=== PATIENT | female | born 1945 | race Caucasian/White ===

== ENCOUNTER 2017-04-15 06:32 | Emergency (ER) | payer MEDICARE ==
[~2017-04-15] VITALS: Ht 167.6 cm; Wt 77.1 kg
--- NOTE | 2017-04-15 06:35 | PHYS DOC ---
Adult General HPI HPI Patient is a 71 year old female presenting to the emergency department for evaluation of left neck pain shooting down to her left arm that has been present for 2 days. Patient says it is constant but gets worse with certain movements of her head and arm. She will not commit to a description of the pain as she says it is not sharp burning tightness squeezing pressure. She just says that it is an intense pain. She denies any exertional pain diaphoresis nausea vomiting shortness of breath. She says that she was looking up on [employer] and there was concern about heart disease and she says that her mother had heart disease and that is why she called the ambulance. She has a history of high cholesterol but no diabetes hypertension or smoking. Review of Systems Review of Systems Constitutional: Denies fever or chills [] Eyes: Denies change in visual acuity, redness, or eye pain [] HENT: Denies nasal congestion or sore throat [] Respiratory: Denies cough or shortness of breath [] Cardiovascular: No CP GI: Denies abdominal pain, nausea, vomiting, bloody stools or diarrhea [] : Denies dysuria or hematuria [] Musculoskeletal: Denies back pain or joint pain [] Integument: Denies rash or skin lesions [] Neurologic: Denies headache, focal weakness or sensory changes [] Current Medications Current Medications Current Medications Medications (Trade) Dose Ordered Sig/Elder Start Time Stop Time Status Last Admin Dose Admin Aspirin (Ecotrin) 325 mg 1X ONCE 04/15/17 07:00 04/15/17 07:01 DC 04/15/17 07:20 325 MG Diazepam (Valium) 5 mg 1X ONCE 04/15/17 07:00 04/15/17 07:01 DC 04/15/17 07:20 5 MG Fentanyl Citrate (Fentanyl 2ml Vial) 75 mcg 1X ONCE 04/15/17 07:00 04/15/17 07:01 DC 04/15/17 07:31 75 MCG Ketorolac Tromethamine (Toradol) 15 mg 1X ONCE 04/15/17 07:00 04/15/17 07:01 DC 04/15/17 07:23 15 MG Allergies Allergies Allergies Coded Allergies Type Severity Reaction Last Updated Verified Penicillins Allergy Intermediate RASH 04/15/17 Yes Sulfa (Sulfonamide Antibiotics) Allergy Intermediate RASH 04/15/17 Yes Physical Exam Physical Exam Constitutional: Well developed, well nourished, no acute distress, non-toxic appearance. [] HENT: Normocephalic, atraumatic, bilateral external ears normal, oropharynx moist, no oral exudates, nose normal. [] Eyes: PERRLA, EOMI, conjunctiva normal, no discharge. [] Neck: No midline tenderness but positive Spurling's test when turning head to the left Cardiovascular:Heart rate regular rhythm, no murmur [] Lungs & Thorax: Bilateral breath sounds clear to auscultation [] Abdomen: Bowel sounds normal, soft, no tenderness, no masses, no pulsatile masses. [] Skin: Warm, dry, no erythema, no rash. [] Back: No tenderness, no CVA tenderness. [] Extremities: No tenderness, no cyanosis, no clubbing, ROM intact, no edema. [] Neurologic: Alert and oriented X 3, normal motor function, normal sensory function, no focal deficits noted. [] Current Patient Data Vital Signs Vital Signs Date Time Temp Pulse Resp B/P (MAP) Pulse Ox O2 Delivery O2 Flow Rate FiO2 04/15/17 06:38 98.7 65 16 215/89 (131) 95 Room Air 98.7 Lab Values Laboratory Tests Test 04/15/17 07:15 White Blood Count 6.2 x10^3/uL (4.0-11.0) Red Blood Count 4.52 x10^6/uL (3.50-5.40) Hemoglobin 14.1 g/dL (12.0-15.5) Hematocrit 42.4 % (36.0-47.0) Mean Corpuscular Volume 94 fL (79-100) Mean Corpuscular Hemoglobin 31 pg (25-35) Mean Corpuscular Hemoglobin Concent 33 g/dL (31-37) Red Cell Distribution Width 13.2 % (11.5-14.5) Platelet Count 205 x10^3/uL (140-400) Neutrophils (%) (Auto) 65 % (31-73) Lymphocytes (%) (Auto) 18 % (24-48) L Monocytes (%) (Auto) 10 % (0-9) H Eosinophils (%) (Auto) 6 % (0-3) H Basophils (%) (Auto) 1 % (0-3) Neutrophils # (Auto) 4.0 x10^3uL (1.8-7.7) Lymphocytes # (Auto) 1.1 x10^3/uL (1.0-4.8) Monocytes # (Auto) 0.6 x10^3/uL (0.0-1.1) Eosinophils # (Auto) 0.4 x10^3/uL (0.0-0.7) Basophils # (Auto) 0.1 x10^3/uL (0.0-0.2) Sodium Level 141 mmol/L (136-145) Potassium Level 3.9 mmol/L (3.5-5.1) Chloride Level 107 mmol/L (98-107) Carbon Dioxide Level 27 mmol/L (21-32) Anion Gap 7 (6-14) Blood Urea Nitrogen 15 mg/dL (7-20) Creatinine 0.5 mg/dL (0.6-1.0) L Estimated GFR (Cockcroft-Gault) 121.6 BUN/Creatinine Ratio 30 (6-20) H Glucose Level 108 mg/dL (70-99) H Calcium Level 9.2 mg/dL (8.5-10.1) Magnesium Level 2.2 mg/dL (1.8-2.4) Total Bilirubin 0.6 mg/dL (0.2-1.0) Aspartate Amino Transferase (AST) 20 U/L (15-37) Alanine Aminotransferase (ALT) 26 U/L (14-59) Alkaline Phosphatase 116 U/L (46-116) Troponin I Quantitative < 0.017 ng/mL (0.000-0.055) BL-Gqt-T-Type Natriuretic Peptide 172 pg/mL (0-124) H Total Protein 6.9 g/dL (6.4-8.2) Albumin 3.4 g/dL (3.4-5.0) Albumin/Globulin Ratio 1.0 (1.0-1.7) Laboratory Tests 04/15/17 07:15 Laboratory Tests 04/15/17 07:15 EKG EKG Normal sinus rhythm at 55 bpm with leftward axis no obvious ST elevation or depression and normal T waves. Radiology/Procedures Radiology/Procedures Indication: Pain in neck shooting down left arm. Technique: Axial images and coronal and sagittal reformatted images are provided. No comparison is available. One or more of the following individualized dose reduction techniques were utilized for this examination: 1. Automated exposure control 2. Adjustment of the mA and/or kV according to patient size 3. Use of iterative reconstruction technique Findings: There is no fracture or traumatic malalignment. There is straightening of cervical lordosis. There is slight anterolisthesis at C3-C4 and C4-C5 which is probably degenerative. Disc osteophyte complexes, uncinate process spurring, and narrowing of the interspace are most notable at C5-C6 and C6-C7. There may be mild canal stenosis at these levels and mild to moderate foraminal narrowing. There is a 12 mm left thyroid nodule. Lung apices are clear. Impression: 1. Degenerative changes are greatest at C5-C6 and C6-C7. 2. Negative for fracture or dislocation. 3. Left thyroid nodule. DICTATED and SIGNED BY: DANNI GREGORY MD DATE: 04/15/17 0739 Indication: Chest pain radiating to neck and right arm. Epigastric pain. Asthma. Technique: Upright portable chest radiograph was obtained. No comparison is available. Findings: The lungs are clear. The cardiopulmonary silhouette is within normal limits. The bony structures are intact. Leads overlie the patient. Impression: No active pulmonary disease. DICTATED and SIGNED BY: DANNI GREGORY MD DATE: 04/15/17 0746 Course & Med Decision Making Course & Med Decision Making Patient's symptoms are more consistent with radiculopathy than cardiac in my opinion however we will get some tests treat her symptoms and then reassess. Patient's pain completely resolved with Toradol and Valium and fentanyl. He has repeat normal neurologic exam and she appears quite well. I offered admission for her concerns of cardiac ischemia and she refused. I think that this is very reasonable given her pain has been going on for 2 days and that she has a normal EKG and troponin more than 6 hours out from the onset of symptoms. She had a normal stress test 4 years ago and would likely need this repeated so I told her to continue taking her aspirin daily not exert herself and follow with her primary care provider and/or clean room assembler within 72 hours. Her heart score is equal to 3 based off of her age and risk factors. Patient will be discharged with follow-up and supportive treatment for cervical radiculopathy. Patient aware and agreeable with the above plan and verbalized understanding. Cade Disclaimer Cade Disclaimer This electronic medical record was generated, in whole or in part, using a voice recognition dictation system. Departure Departure Impression: Primary Impression: Cervical radiculopathy Additional Impression: Neck pain Disposition: 01 HOME, SELF-CARE Condition: GOOD Referrals: YANY PENDLETON MD (PCP) MADHU FAJARDO MD Patient Instructions: Cervical Radiculopathy Additional Instructions: Take 400 mg of ibuprofen every 8 hours for pain and the Percocet is for breakthrough pain. Valium will help with spasm. Take your aspirin daily and do not exert herself until seen by her primary care provider. Come back to the emergency department sooner with any new or worsening pain weakness or shortness of breath or other general concerns. Scripts Diazepam (VALIUM) 5 Mg Tablet 5 MG PO TID Y for MUSCLE SPASMS, #10 TAB Prov: ANALI GARCIA DO 04/15/17 Oxycodone/Apap 5-325 (PERCOCET 5-325 MG TABLET) 1 Each Tablet 1 TAB PO PRN Q6HRS Y for PAIN, #20 TAB 0 Refills Prov: ANALI GARCIA DO 04/15/17 Problem Qualifiers ANALI GARCIA DO April 15, 2017 06:35
[2017-04-15] MEDS ORDERED: fentaNYL PF VIAL 100 MCG/2 ML VIAL IV ONE (07:00)
[2017-04-15] MEDS ORDERED: ASPIRIN ENTERIC COATED 325 MG TABLET.DR. PO ONE (07:00)
[2017-04-15] MEDS ORDERED: KETOROLAC TROMETHAMINE 30 MG/ML INJ. IV ONE (07:00)
[2017-04-15] MEDS ORDERED: diazePAM 5 MG TABLET PO ONE (07:00)
[2017-04-15 07:43] LABS: CALCIUM 9.2 mg/dL (8.5-10.1); CREATININE 0.5 mg/dL (0.6-1.0); GFR 121.6; POTASSIUM 3.9 mmol/L (3.5-5.1)
[2017-04-15 07:49] LABS: ALBUMIN 3.4 g/dL (3.4-5.0); MAGNESIUM 2.2 mg/dL (1.8-2.4); TOTAL BILIRUBIN 0.6 mg/dL (0.2-1.0); TOTAL PROTEIN 6.9 g/dL (6.4-8.2)
--- NOTE | 2017-04-15 07:49 | RAD ---
Indication: Pain in neck shooting down left arm. Technique: Axial images and coronal and sagittal reformatted images are provided. No comparison is available. One or more of the following individualized dose reduction techniques were utilized for this examination: 1. Automated exposure control 2. Adjustment of the mA and/or kV according to patient size 3. Use of iterative reconstruction technique Findings: There is no fracture or traumatic malalignment. There is straightening of cervical lordosis. There is slight anterolisthesis at C3-C4 and C4-C5 which is probably degenerative. Disc osteophyte complexes, uncinate process spurring, and narrowing of the interspace are most notable at C5-C6 and C6-C7. There may be mild canal stenosis at these levels and mild to moderate foraminal narrowing. There is a 12 mm left thyroid nodule. Lung apices are clear. Impression: 1. Degenerative changes are greatest at C5-C6 and C6-C7. 2. Negative for fracture or dislocation. 3. Left thyroid nodule.
--- NOTE | 2017-04-15 07:49 | RAD ---
Indication: Chest pain radiating to neck and right arm. Epigastric pain. Asthma. Technique: Upright portable chest radiograph was obtained. No comparison is available. Findings: The lungs are clear. The cardiopulmonary silhouette is within normal limits. The bony structures are intact. Leads overlie the patient. Impression: No active pulmonary disease.
[2017-04-15 07:54] LABS: BASO # 0.1 x10^3/uL (0.0-0.2); BASO % 1 % (0-3); EOS % 6 % (0-3); HEMATOCRIT 42.4 % (36.0-47.0); HEMOGLOBIN 14.1 g/dL (12.0-15.5); LYMPH # 1.1 x10^3/uL (1.0-4.8); LYMPH % 18 % (24-48); MEAN CORPUSCULAR HEMOGLOBIN 31 pg (25-35); MEAN CORPUSCULAR HGB CONC 33 g/dL (31-37); MEAN CORPUSCULAR VOLUME 94 fL (79-100); MONO % 10 % (0-9); NEUT % 65 % (31-73); PLATELET COUNT 205 x10^3/uL (140-400); RED BLOOD COUNT 4.52 x10^6/uL (3.50-5.40); RED CELL DISTRIBUTION WIDTH 13.2 % (11.5-14.5); WHITE BLOOD COUNT 6.2 x10^3/uL (4.0-11.0)
[2017-04-15] MEDS ORDERED: DEXAMETHASONE SOD PHOS 20 MG/5 ML VIAL. IV ONE (08:15)
[2017-04-15] MEDS ORDERED: DIAZ5TAB PO (08:19)
[2017-04-15] MEDS ORDERED: OXYC-323 PO (08:19)
[2017-04-15 09:00] VITALS: BP 170/72
--- NOTE | 2017-04-15 14:47 | EKG ---
[facility] [address] [place] [address] Test Date: 2017-04-15 Test Time: 07:14:53 Pat Name: SHADY MONSALVE Department: Room: Gender: F Assembler Seat: : 1945 Requested By: ANALI GARCIA Order Number: [id number] Reading MD: Ivon Song Measurements Intervals [place] Rate: 55 P: 31 VA: 202 QRS: -2 QRSD: 96 T: 13 QT: 440 QTc: 423 Interpretive Statements SINUS RHYTHM LEFTWARD AXIS NON SPECIFIC T ABNORMALITY RI6.01 Unconfirmed report No previous ECG available for comparison Electronically Signed On 04-16-2017 21:29:43 CDT by Ivon Song
== END 2017-04-15 09:05 | disposition home or self-care (01) ==
LOC: ER 06:32
DX: M54.12 Radiculopathy, cervical region (principal); M54.2 Cervicalgia; Z88.0 Allergy status to penicillin; Z88.2 Allergy status to sulfonamides
CPT/HCPCS: 36415; 71010; 72125; 80053; 83735; 83880; 84484; 85027; 93005; 96374; 96375; 99285; J1100; J1885; J3010

== ENCOUNTER → 2019-01-21 | Outpatient (CLI) | payer MEDICARE ==
[~2019-01-21] MED LIST: DIAZ5TAB PO; OXYC1TAB15 PO
--- NOTE | 2019-01-21 12:04 | KCIC ---
PQRS Compliance Statement: One or more of the following individualized dose reduction techniques were utilized for this examination: 1. Automated exposure control 2. Adjustment of the mA and/or kV according to patient size 3. Use of iterative reconstruction technique Coronary calcium score CT chest without contrast History: 73-year-old female with hyperlipidemia and maternal family history of heart disease. Technique: With retrospective electrocardiogram gating axial reconstructed noncontrast images of the chest at the level of the coronary arteries was performed. Images were post processed on workstation and calcium score calculated using the modified Agatston Janowitz protocol. Findings: Total coronary calcium score is 329.8. This is a large plaque burden and high cardiovascular disease risk. This is based on the calcium score of 0 of the left main coronary artery, 127.3 of the left anterior descending artery, score of 0.8 of the left circumflex artery and score of 201.7 of the right coronary artery. Noncoronary findings demonstrate aortic annular calcification and calcific aortic valve stenosis. Cardiac size normal, no pericardial effusion. Upper abdomen unremarkable. Great vessels are normal caliber. Mild atelectasis or scarring in the posterior lower lobes bilaterally. No pleural abnormality. Bones unremarkable. IMPRESSION: Patient's total calcium score is 329.8. Electronically signed by: Aj Mauro MD (01/21/2019 12:00 PM) [id number]
--- NOTE | 2019-01-21 13:31 | KCIC ---
Bilateral digital screening mammograms with 3-D tomosynthesis: Reason for examination: Routine screening. Comparison is made to previous studies dated 05/10/2015 and 07/05/2012. Bilateral mammograms in CC and oblique projections were obtained with 2-D imaging and 3-D tomosynthesis imaging on a Siemens Inspiration unit and reviewed on the workstation. Interpretation was made with the benefit of CAD. The skin and nipples show no abnormalities. No abnormal axillary lymph nodes are seen. The breast parenchyma shows scattered fatty and fibroglandular density. (Breast density: Category B.) There continues to be a small nodule at the 4:00 B position of the left breast which has shown a decrease in size since previous exam. There also continues to be some asymmetric tissue at the 7:00 B position of the left breast which is slightly less prominent. There is however a new 5.6 mm nodular density in the retroareolar position approximately 3.5 cm deep to the nipple in the left breast. This could represent a new cyst but recommend further evaluation with ultrasound. There are no other new dominant masses, suspicious calcifications or architectural distortion. Impression: Small 5.6 mm nodular parenchymal density 3.5 cm deep to the nipple in the left breast. Recommend further evaluation with coned compression views and ultrasound of the left breast. BI-RAD Category 0: Incomplete. Needs additional imaging evaluation. "Our facility is accredited by the [employer] Mammography Program." This patient's information has been entered into a reminder system for the patient to be notified with the results of her examination and a target date for the next mammogram. Electronically signed by: Teagan Bernal MD (01/21/2019 1:28 PM) [id number]
== END | disposition home or self-care (01) ==
LOC: KCIC CT 10:56
PROVIDERS: ATTEND Family Medicine
DX: Z12.31 Encounter for screening mammogram for malignant neoplasm of breast (principal); Z13.6 Encounter for screening for cardiovascular disorders; E78.5 Hyperlipidemia, unspecified; Z82.49 Family history of ischemic heart disease and other diseases of the circulatory system
CPT/HCPCS: 75571; 77063; 77067

== ENCOUNTER → 2019-01-30 | Outpatient (CLI) | payer MEDICARE ==
--- NOTE | 2019-01-30 14:11 | KCIC ---
EXAM: Left breast diagnostic mammogram; left breast sonogram. HISTORY: 73-year-old female presents for evaluation of nodularity within the left breast demonstrated on a screening mammogram dated 01/21/2019. TECHNIQUE: Slight compression views of the left breast are obtained. Sonographic imaging of the left breast targeted to the retroareolar location was also performed. COMPARISON: 01/21/2019, 05/10/2015 and 07/05/2012 BREAST PARENCHYMAL DENSITY: Level B - Scattered fibroglandular densities. FINDINGS: There is a small persistent nodular density within the slightly lateral aspect of the left breast at mid depth. There are additional areas of nodularity which are stable compared to multiple prior studies. There is no architectural distortion or suspicious calcification within the left breast. Sonographic imaging of the left breast demonstrates a 5 mm oval to round circumscribed hypoechoic lesion with internal echoes at the 2:30 position 3.5 cm. This corresponds with the size and likely the location of the mammographic finding of concern. The imaging appearance favors a complicated cyst. There is no internal blood flow to suggest a solid lesion component. IMPRESSION: 1. Suspected 5 mm complicated cyst within the 2:30 position of the left breast at mid depth, likely corresponding with mammographic nodularity of concern. There are additional areas of nodularity within the left breast which are stable compared to multiple studies. 2. BI-RADS Category 3: Probably benign finding(s). Short term follow up with a left breast diagnostic mammogram and sonogram is recommended in 6 months to confirm stability and confirm that the sonographic finding corresponds with the mammographic finding. If your mammogram demonstrates that you have dense breast tissue, which could hide abnormalities, and if you have other risk factors for breast cancer that have been identified, you might benefit from supplemental screening tests that may be suggested by your ordering physician. Dense breast tissue, in and of itself, is a relatively common condition. This information is not provided to cause undue concern, but rather to raise your awareness and to promote discussion with your physician regarding the presence of other risk factors, in addition to dense breast tissue. A report of your mammography results will be sent to you and your physician. You should contact your physician if you have any questions or concerns regarding this report. Mammography is a sensitive method for finding small breast cancers, but it does not detect them all and is not a substitute for careful clinical examination. A negative mammogram does not negate a clinically suspicious finding and should not result in delay in biopsying a clinically suspicious abnormality. PQRS compliance statement - Patient information was entered into a reminder system with a target due date for the next mammogram. "Our facility is accredited by the [employer] Mammography Program." Electronically signed by: Lore Rodriguez MD (01/30/2019 2:08 PM) [id number]
== END | disposition home or self-care (01) ==
LOC: KCIC MAMMO 12:42
PROVIDERS: ATTEND Family Medicine
DX: R92.8 Other abnormal and inconclusive findings on diagnostic imaging of breast (principal)
CPT/HCPCS: 76641; 77065

== ENCOUNTER → 2019-08-04 | Outpatient (CLI) | payer MEDICARE ==
--- NOTE | 2019-08-04 13:55 | KCIC ---
EXAM: Left breast diagnostic mammogram with tomosynthesis; left breast sonogram. HISTORY: 73-year-old female presents for follow-up evaluation of suspected benign findings within the left breast demonstrated on a mammogram and sonogram dated 01/30/2019. TECHNIQUE: Full-field digital craniocaudal and mediolateral oblique 2D and 3D tomosynthesis images of the left breast are obtained for evaluation. Computer aided detection with [employer] software version 9.3 was applied. Sonographic imaging of the left breast including all 4 quadrants and the retroareolar region was performed. COMPARISON: 01/30/2019 and 01/21/2019 and 05/10/2015. BREAST PARENCHYMAL DENSITY: Level B - Scattered fibroglandular densities. FINDINGS: There is stable areas of nodularity and asymmetry within the left breast, allowing for differences in patient positioning and compression technique. There is no new suspicious mammographic finding. Sonographic imaging of the left breast demonstrates a stable suspected comminuted cyst at the 2:30 position 3.5 cm from the nipple measuring 4.5 mm. No new suspicious sonographic lesion is seen. IMPRESSION: 1. No significant interval change in the left breast. 2. BI-RADS Category 3: Probably benign finding(s). Repeat short-term follow up with a diagnostic mammogram in 6 months is recommended to confirm a year of stability and correspond with the previously established bilateral mammography interval. If your mammogram demonstrates that you have dense breast tissue, which could hide abnormalities, and if you have other risk factors for breast cancer that have been identified, you might benefit from supplemental screening tests that may be suggested by your ordering physician. Dense breast tissue, in and of itself, is a relatively common condition. This information is not provided to cause undue concern, but rather to raise your awareness and to promote discussion with your physician regarding the presence of other risk factors, in addition to dense breast tissue. A report of your mammography results will be sent to you and your physician. You should contact your physician if you have any questions or concerns regarding this report. Mammography is a sensitive method for finding small breast cancers, but it does not detect them all and is not a substitute for careful clinical examination. A negative mammogram does not negate a clinically suspicious finding and should not result in delay in biopsying a clinically suspicious abnormality. PQRS compliance statement - Patient information was entered into a reminder system with a target due date for the next mammogram. "Our facility is accredited by the [employer] Mammography Program." Electronically signed by: Lore Rodriguez MD (08/04/2019 1:52 PM) [id number]
== END | disposition home or self-care (01) ==
LOC: KCIC MAMMO 12:59
PROVIDERS: ATTEND Family Medicine
DX: R92.8 Other abnormal and inconclusive findings on diagnostic imaging of breast (principal)
CPT/HCPCS: 76641; 77065; G0279; 77061

== ENCOUNTER → 2020-01-28 | Outpatient (CLI) | payer MEDICARE ==
--- NOTE | 2020-01-28 15:42 | KCIC ---
Bilateral diagnostic digital mammograms with 3-D tomosynthesis: Reason for examination: Follow-up nodular density. Comparison is made to previous studies dated 01/21/2019 and 05/10/2015. Bilateral mammograms in CC and oblique projections were obtained with 2-D imaging and 3-D tomosynthesis imaging on a Siemens Inspiration unit and reviewed on the workstation. Interpretation was made with the benefit of CAD. The skin and nipples show no abnormalities. No abnormal axillary lymph nodes are seen. The breast parenchyma shows scattered fatty and fibroglandular density. (Breast density: Category B.) There appears to be a small 5 mm nodule in the 3:30 position of the left breast 6 cm from the nipple. There also appears to be a small nodular density in the central left breast on cc view approximately 3 cm deep to the nipple measuring 7.5 mm in size which is probably in the retroareolar position. Further evaluation with ultrasound is recommended. There are no other new dominant masses, suspicious calcifications or architectural distortion. Impression: Small nodular densities in the left breast at the 3:30 position 6 cm from the nipple and in the retroareolar position approximately 3 cm deep to the nipple. Recommend reevaluation with ultrasound. The patient will schedule that exam. BI-RADS Category 0: Incomplete: Need additional imaging evaluation. "Our facility is accredited by the [employer] Mammography Program." This patient's information has been entered into a reminder system for the patient to be notified with the results of her examination and a target date for the next mammogram. Electronically signed by: Teagan Bernal MD (01/28/2020 3:39 PM) [id number]
== END ==
LOC: KCIC MAMMO 12:46
PROVIDERS: ATTEND Family Medicine
DX: N63.24 Unspecified lump in the left breast, lower inner quadrant (principal)
CPT/HCPCS: 77066; G0279; 77062

== ENCOUNTER → 2021-01-20 | Outpatient (CLI) | payer MEDICARE ==
--- NOTE | 2021-01-20 17:23 | RAD ---
Examination: 1. Digital bilateral diagnostic mammogram. 2. Limited left breast ultrasound. INDICATION: 75-year-old woman due for mammographic screening presents for additional imaging evaluati on of nodular densities in the left breast recalled from screening the previous year but which she di d not schedule or keep recommended follow-up. COMPARISON: Bilateral mammogram of 01/28/2020, left digital diagnostic mammogram of 08/04/2019 and left b reast ultrasound examinations of 08/04/2019 and 01/30/2019. TECHNIQUE: Bilateral CC and MLO views were obtained with 2-D and 3-D technique and reviewed with comp uter-aided detection. In addition, targeted ultrasound of the left breast in the areas of recommended additional imaging was performed. FINDINGS: Scattered fibroglandular densities. Waxing and waning pattern of nodularity compatible with benign cystic change. Targeted ultrasound left breast identifies at the 2:30 o'clock position 3.5 cm from nipple reveals an unchanged 4 mm parallel orientation circumscribed anechoic mass compatible with a cyst. Sonographic survey of the left axilla reveals no adenopathy. IMPRESSION: Benign findings in both breasts with no evidence of malignancy. BI-RADS Category 2 Benign findings Recommend return to routine screening next due in one year. Patient entered into a reminder system with targeted due date for next mammogram. Electronically signed by: Kodi Ramirez MD (01/20/2021 5:20 PM) [id number]
== END ==
LOC: MAMMO 12:29
PROVIDERS: ATTEND Family Medicine
DX: N63.21 Unspecified lump in the left breast, upper outer quadrant (principal); N60.02 Solitary cyst of left breast
CPT/HCPCS: 76641; 77066; G0279; 77062

== ENCOUNTER → 2021-12-15 | Outpatient (CLI) | payer MEDICARE ==
--- NOTE | 2021-12-15 13:20 | KCIC ---
Bone densitometry 12/15/2021 10:22 AM Indication: Reason: POST MENOPAUSAL / Spl. Instructions: / History: Comparison Study: None available. Discussion: Bone Densitometry was performed with dual photon absorption of the lumbar spine and pro ximal femurs. Lumbar Spine: Bone average density is 0.952g/cm2 for L1-L4. T-Score is -0.9. Left femoral neck: Bone average density is 0.983 g/cm2. T-Score is 0.3. IMPRESSION: Bone mineral density within low normal range Note: Definitions established by the World Health Organization: Normal: T-score is -1.0 or above. Osteopenia: T-score is between -1.0 and -2.5. Osteoporosis: T-score is -2.5 or below. Electronically signed by: Guillaume Yoder MD (12/15/2021 1:18 PM) [id number]
== END ==
LOC: KCIC DEXA 10:15
PROVIDERS: ATTEND Family Medicine
DX: Z78.0 Asymptomatic menopausal state (principal)
CPT/HCPCS: 77080

== ENCOUNTER → 2022-01-23 | Outpatient (CLI) | payer MEDICARE ==
--- NOTE | 2022-01-23 15:21 | KCIC ---
Bilateral digital screening 2-D and 3-D (digital breast tomosynthesis) mammogram: Reason for examination: Routine screening. Comparison: Mammograms from 08/04/2019, 01/20/2021 and 01/28/2020. Left breast ultrasound from 01/20/2021. Interpretation was made with the benefit of CAD. FINDINGS: Breast density: Category B. There are scattered areas of fibroglandular density. No suspicious breast mass, malignant appearing calcifications, or architectural distortion is seen. T here are multiple very small oval circumscribed masses in both breasts. Previously noted cyst in the 2:30 position left breast decreased in size. IMPRESSION: No evidence of malignancy. Assessment: BI-RADS 2. Benign findings. Recommendation: Routine screening mammograms. The patient will receive a letter with the results in the mail. Patient information will be entered i nto the mammography reminder system with a target recall date for the next mammogram. A reminder marley er will be generated. Electronically signed by: Jagruti Obrien MD (01/23/2022 3:18 PM) [id number]
== END ==
LOC: KCIC MAMMO 09:46
PROVIDERS: ATTEND Family Medicine
DX: Z12.31 Encounter for screening mammogram for malignant neoplasm of breast (principal)
CPT/HCPCS: 77063; 77067